=== PATIENT | female | born 1965 | race Caucasian/White ===

== ENCOUNTER → 2019-03-31 | Outpatient (CLI) | payer BC ==
--- NOTE | 2019-03-31 09:57 | Diagnostic Imaging Report ---
INDICATION: Fracture. FINDINGS: The bones are encased within cast material. This obscures most of the bony detail. There appears to be a questionable nondisplaced radial styloid fracture. Alignment is grossly normal. IMPRESSION: Limited exam due to cast material appears to demonstrate nondisplaced radial styloid fracture, likely intra-articular. Dictated by: Dictated on workstation # [id number]
== END ==
LOC: RAD FS 08:11
PROVIDERS: ATTEND Nurse Practitioner
DX: S52.692A Other fracture of lower end of left ulna, initial encounter for closed fracture (principal); X58.XXXA Exposure to other specified factors, initial encounter
CPT/HCPCS: 73110

== ENCOUNTER → 2019-04-14 | Outpatient (CLI) | payer BC ==
--- NOTE | 2019-04-14 09:32 | Diagnostic Imaging Report ---
INDICATION: Left wrist fracture, followup. TECHNIQUE/COMPARISON: AP, oblique, and lateral views of the left wrist were obtained and compared to 03/31/2019. FINDINGS: The overlying cast has been removed. There is stable alignment of the radial styloid fracture with further healing. The remaining bony structures are intact. IMPRESSION: Further healing of the radial styloid fracture compared to the previous study with stable alignment. Dictated by: Dictated on workstation # [id number]
== END ==
LOC: RAD FS 08:17
PROVIDERS: ATTEND Nurse Practitioner
DX: S52.592D Other fractures of lower end of left radius, subsequent encounter for closed fracture with routine healing (principal)
CPT/HCPCS: 73110

== ENCOUNTER → 2019-04-30 | Outpatient (CLI) | payer BC ==
--- NOTE | 2019-04-30 09:36 | Diagnostic Imaging Report ---
INDICATION: Fracture follow-up, radial fracture. COMPARISON: 04/14/2019 TECHNIQUE: 2 radiographs of left wrist dated 04/30/2019 FINDINGS: Transversely oriented distal radial fracture is again identified. This appears in stable alignment. There is increasing callus formation periosteal reaction when compared to prior examination. No new fracture or dislocation. No destructive osseous process. Carpal alignment is well-maintained. IMPRESSION: Interval healing of previously noted nondisplaced distal radial fracture remaining in stable alignment. No new acute osseous abnormality. Dictated by: Dictated on workstation # [id number]
== END ==
LOC: RAD FS 08:11
PROVIDERS: ATTEND Nurse Practitioner
DX: S52.592D Other fractures of lower end of left radius, subsequent encounter for closed fracture with routine healing (principal)
CPT/HCPCS: 73100